=== PATIENT | male | born 1990 | race Caucasian/White ===

== ENCOUNTER 2017-09-05 18:25 | Emergency (ER) | payer BC ==
[2017-09-05 19:23] VITALS: BP 149/97
[2017-09-05] MEDS ORDERED: Ibuprofen TAB* 600 MG PO ONE (19:52)
--- NOTE | 2017-09-05 20:28 | RAD ---
INDICATION: Right shoulder pain after a fall while snowboarding COMPARISON: None. TECHNIQUE: 4 views of the right shoulder were obtained. FINDINGS: The adequately corticated bones are in normal alignment. Joint spaces appear maintained. No fracture, dislocation or focal bony abnormality is seen. IMPRESSION: Normal radiograph of the right shoulder. If the patient's symptoms persist, follow-up imaging is recommended.
[2017-09-05] MEDS ORDERED: HYDROcodone/ACETAMIN 5-325 MG* 1 TAB PO ONE (20:46)
--- NOTE | 2017-09-05 20:51 | UC ---
Stanley Garza Gabriel, scribed for Pato Lucero MD on 09/05/17 at 1952 . Upper Extremity HPI - HPI Summary HPI Summary: This patient is a 27 year old M presenting to [facility] accompanied by his girlfriend s/p fall while snowboarding. When the pt fell he attempted to catch himself with his arms. The patient rates the pain 10/10 in severity. Patient denies LOC, neck pain, head trauma, and inability to move his fingers. - History of Current Complaint Chief Complaint: UCUpperExtremity Stated Complaint: SHOULDER INJURY Time Seen by Provider: 09/05/17 19:48 Hx Obtained From: Patient Onset/Duration: Lasting Hours, Still Present Severity Initially: Severe Severity Currently: Severe Pain Intensity: 10 Pain Scale Used: 0-10 Numeric Aggravating Factor(s): Movement Associated Signs And Symptoms: Positive: Negative - LOC and neck pain - Allergies/Home Medications Allergies/Adverse Reactions: Allergies Allergy/AdvReac Type Severity Reaction Status Date / Time Sulfa (Sulfonamide Allergy Rash Verified 09/05/17 19:23 Antibiotics) PMH/Surg Hx/FS Hx/Imm Hx Previously Healthy: Yes Other History Of: Negative For: HIV, Hepatitis B - Surgical History Surgical History: None - Family History Known Family History: Negative: Hypertension, Diabetes, Renal Disease, Seizure Disorder, Blood Disorder - Social History Alcohol Use: Occasionally Substance Use Type: None Smoking Status (MU): Never Smoked Tobacco Review of Systems Musculoskeletal: Negative - neck pain, Other: - pain at right shoulder Neurological: Negative - LOC All Other Systems Reviewed And Are Negative: Yes Physical Exam Triage Information Reviewed: Yes Vital Signs: Initial Vital Signs Temp 99.1 F 09/05/17 19:18 Pulse 78 09/05/17 19:18 Resp 20 09/05/17 19:18 BP 149/97 09/05/17 19:18 Pulse Ox 100 09/05/17 19:18 Vital Signs Reviewed: Yes - Additional Comments General: well-appearing, no pain distress Skin: warm, color reflects adequate perfusion, dry Head: normal Eyes: EOMI, SANYA ENT: normal Neck: supple, nontender Respiratory: CTA, breath sounds present Cardiovascular: RRR Abdomen: soft, nontender Bowel: present Musculoskeletal: TTP at right shoulder, good pulses, no ROM at right shoulder. Good capillary refill, no neurological deficits Neurological: normal, sensory/motor intact, A&O x3 Psychological: affect/mood appropriate Diagnostics - Radiology shoulder xray Radiology Interpretation Completed By: Radiologist - Normal radiograph of the right shoulder. Dr. Lucero has reviewed this report. Upper Extremity Course/Dx - Course Course Of Treatment: Medications reviewed. Allergies noted. BP noted and advised to follow up with PCP. WITH THE DIFFICULTY WITH ROM A ROTATOR CUFF INJURY IS PROBABLE. - Differential Dx/Diagnosis Provider Diagnoses: RIGHT SHOULDER PAIN. Elevated blood pressure without history of hypertension. Discharge - Discharge Plan Condition: Stable Disposition: HOME Prescriptions: Hydrocodone/Acetaminophen [[place] 5-325 Tablet] 1 each PO Q4H PRN #20 tablet MDD 6 PRN Reason: Pain Patient Education Materials: Shoulder Pain (ED) Forms: *Work Release Referrals: [facility] [Outside] Myra Colunga MD [Primary Care Provider] - Additional Instructions: FOLLOW UP WITH YOUR PRIMARY CARE DOCTOR AND SPORTS MEDICINE. GET RECHECKED FOR ANY WORSENING OF YOUR CONDITION OR QUESTIONS OR CONCERNS. Your blood pressure was elevated during todays visit; please follow up with your primary care provider within a week for further evaluation. The documentation as recorded by the Stanley calles Gabriel accurately reflects the service I personally performed and the decisions made by me, Pato Lucero MD.
== END 2017-09-05 21:05 | disposition home or self-care (01) ==
LOC: UCEAST 18:25
DX: M25.511 Pain in right shoulder (principal); R03.0 Elevated blood-pressure reading, without diagnosis of hypertension; Z88.2 Allergy status to sulfonamides
CPT/HCPCS: 99213; A9270-GY; G0463

== ENCOUNTER 2018-10-20 08:37 | Emergency (ER) | payer BC ==
[2018-10-20 09:19] VITALS: BP 149/76
[2018-10-20] MEDS ORDERED: Ibuprofen TAB* 600 MG PO ONE (09:42)
[2018-10-20 09:52] LABS: Influenza A Molecular POSITIVE (Negative)
--- NOTE | 2018-10-20 10:20 | UC ---
FLU HPI - HPI Summary HPI Summary: 2 DAYS OF COUGH, SORE THROAT, FEVER, HEADACHE, BODY ACHES, FATIGUE, NAUSEA AND OVERALL MALAISE. NO FLU SHOT THIS SEASON. - History of Current Complaint Chief Complaint: UCGeneralIllness Stated Complaint: SORE THROAT Time Seen by Provider: 10/20/18 09:59 Hx Obtained From: Patient Onset/Duration: Gradual Onset, Lasting Days, Still Present Severity Currently: Moderate Severity Initially: Moderate Pain Intensity: 9 Pain Scale Used: 0-10 Numeric Associated Signs & Symptoms: Positive: Fever, Myalgia, Cough, Sore Throat, Nasal Congestion, Headache - Allergy/Home Medications Allergies/Adverse Reactions: Allergies Allergy/AdvReac Type Severity Reaction Status Date / Time Sulfa (Sulfonamide Allergy Rash Verified 10/20/18 09:14 Antibiotics) Home Medications: Home Medications D-Methorphan/PE/Acetaminophen [Cold Multi-Symptom [place]] 1 tab PO ONCE [History Confirmed 10/20/18] PMH/Surg Hx/FS Hx/Imm Hx Previously Healthy: Yes Other History Of: Negative For: HIV, Hepatitis B - Surgical History Surgical History: Yes Surgery Procedure, Year, and Place: CYST REMOVED FROM Lt [facility] - Family History Known Family History: Negative: Hypertension, Diabetes, Renal Disease, Seizure Disorder, Blood Disorder - Social History Alcohol Use: Occasionally Substance Use Type: None Smoking Status (MU): Never Smoked Tobacco Review of Systems All Other Systems Reviewed And Are Negative: Yes Constitutional: Positive: Fever, Chills, Fatigue ENT: Positive: Sore Throat, Nasal Discharge Respiratory: Positive: Cough Cardiovascular: Positive: Negative Gastrointestinal: Positive: Nausea Musculoskeletal: Positive: Myalgia Neurological: Positive: Headache Physical Exam Triage Information Reviewed: Yes Appearance: Well-Appearing, No Pain Distress, Well-Nourished Vital Signs: Initial Vital Signs Temp 102.5 F 10/20/18 09:14 Pulse 95 10/20/18 09:14 Resp 20 10/20/18 09:14 BP 149/76 10/20/18 09:14 Pulse Ox 98 10/20/18 09:14 Laboratory Tests 10/20/18 10/20/18 09:45 09:48 Influenza A (Rapid) Positive A Group A Strep Rapid Negative Vital Signs Reviewed: Yes Eyes: Positive: Conjunctiva Clear ENT: Positive: Hearing grossly normal, Pharynx normal, TMs normal Neck: Positive: Supple, Nontender, No Lymphadenopathy Respiratory Exam: Normal Cardiovascular Exam: Normal Abdomen Description: Positive: Soft Musculoskeletal: Positive: No Edema Neurological: Positive: Alert Psychological: Positive: Age Appropriate Behavior Skin: Negative: Rashes Flu Course/Dx - Differential Dx/Diagnosis Provider Diagnosis: Influenza A Discharge - Sign-Out/Discharge Documenting (check all that apply): Patient Departure All imaging exams completed and their final reports reviewed: No Studies - Discharge Plan Condition: Stable Disposition: HOME Prescriptions: Ondansetron ODT TAB* [Zofran Odt TAB*] 4 mg PO Q6H PRN #20 tab.odt PRN Reason: Nausea/Vomiting Oseltamivir CAP* [Tamiflu CAP*] 75 mg PO BID #10 cap Patient Education Materials: Influenza (ED) Forms: *Work Release Referrals: Myra Colunga MD [Primary Care Provider] - If Needed Additional Instructions: SWAB POSITIVE FOR INFLUENZA A. TAMIFLU TWICE DAILY FOR 5 DAYS. OTC MEDS NEEDED FOR FEVER, BODY ACHES. STAY WELL HYDRATED AND RESTED. SEEK FOLLOW-UP IF YOU ARE NOT IMPROVING EXPECTED. - Billing Disposition and Condition Condition: STABLE Disposition: Home
== END 2018-10-20 10:23 | disposition home or self-care (01) ==
LOC: UCEAST 08:37
DX: J11.1 Influenza due to unidentified influenza virus with other respiratory manifestations (principal); Z88.2 Allergy status to sulfonamides
CPT/HCPCS: 87651; 99212; A9270-GY; G0463